=== PATIENT | female | born 1970 | race Caucasian/White ===

== ENCOUNTER 2024-11-15 13:12 | Outpatient (CLI) | payer OTHER, SELFPAY ==
--- NOTE | ~2024-11-15 | MM_ITS ---
EXAMINATION: MM screening arina BI w hafsa HISTORY: Screening TECHNIQUE: Craniocaudal and mediolateral oblique 3-D tomosynthesis images were obtained and synthetic 2-D images were generated. CAD analysis was submitted and interpreted. COMPARISON: No prior mammogram is available for comparison at this institution. BREAST PARENCHYMAL COMPOSITION: Dense: The breasts are extremely dense, which lowers the sensitivity of mammography. FINDINGS: There is no evidence of suspicious mass, calcification, or architectural distortion to sugg est malignancy in either breast. There has been no suspicious interval change. IMPRESSION: 1. No mammographic evidence of malignancy. 2. Recommend routine screening mammography in one year. BI-RADS Category 1: Negative Reviewed, dictated and finalized at location A.
--- OUTSIDE RECORDS SUMMARY | 2024-11-15 13:17 | XMS_ITS | Encounter Summary ---
Author Organization [facility] Address [address] [place] [address] Care Team Providers Care Copy Writer Name Role Phone LuisAndria Shelbie DAVID Primary Care Provider [phone] Encounter Details Date Type Department Care Team (Late st Contact Info) Description 10/19/2024 OrthoSensor Message Enc [facility] [employer] [address] [place] [address] Rebeca, [facility] Provider Patient Amendment Request Social History Tobacco Use Types Packs/Day Years Used Date Smoking Tobacco: Former Cigarettes 2014 Smokeless Tobacco: Never Alcohol Use Standard Drinks/Week Comments Yes 0 (1 standard drink = 0.6 oz pur e alcohol) I only drink occasionally PHQ-2 Answer Date Recorded Patient Health Questionnaire-2 Score 4 10/19/2024 Comments No Sex and Gender Information Value Date Recorded Sex Assigned at Female 10/04/2024 3:41 PM CDT Legal Sex Female 12:26 PM CDT Gender Identity Female 10/04/2024 3:41 PM CDT Sexual Orientation Not on file documented as of this encounter Functional Status * Over the past 2 weeks, how often have you been bothered by any of the following problems? Question Answer Date of Assessment Author Status Little interest or pleasure in doing things More than half the days 10/19/2024 4:04 PM CDT Laya Murillo MA Active Feeling down, depressed, or hopeless More than half the days 10/19/2024 4:04 PM CDT Laya Murillo MA Active Patient Health Questionnaire-2 Score 4 10/19/2024 4:04 PM CDT Laya Murillo MA Active * Question Answer Date of Assessment Author Status Trouble falling or staying asleep, or sleeping too much More than half the days 10/19/2024 4:04 PM CDT Laya Murillo MA Active Feeling tired or having little energy More than half the days 10/19/2024 4:04 PM CDT Laya Murillo MA Active Poor appetite or overeating Not at all 10/19/2024 4:04 PM CDT Laya Murillo MA Active Feeling bad about yourself - or that you are a failure or have let yourself or your family down Not at all 10/19/2024 4:04 PM CDT Laya Murillo MA Active Trouble concentrating on things, such as reading the newspaper or watching television Several days 10/19/2024 4:04 PM CDT Laya Murillo MA Active Moving or speaking so slowly that other people could have noticed? Or the opposite - being so fidgety or restless that you have been moving around a lot more than usual. Not at all 10/19/2024 4:04 PM CDT Laya Murillo MA Active Thoughts that you would be better off or hurting yourself in some way Not at all 10/19/2024 4:04 PM CDT Laya Murillo MA Active Patient Health Questionnaire-9 Score 9 10/19/2024 4:04 PM CDT Laya Murillo MA Active * If you checked off any problems on this questionnaire so far, Question Answer Date of Assessment Author Status How difficult have these problems made it for you to do your work, take care of things at home, or get along with other people? Somewhat difficult 10/19/2024 4:04 PM CDT Laya Murillo MA Active * Over the last 2 weeks, how often have you been bothered by any of the following problems? Question Answer Date of Assessment Author Status Feeling nervous, anxious, or on edge 3 10/19/2024 4:05 PM CDT Laya Murillo MA Active Not being able to stop or control worrying 3 10/19/2024 4:05 PM CDT Laya Murillo MA Activ e Worrying too much about different things 3 10/19/2024 4:05 PM CDT Laya Murillo MA Activ e Trouble relaxing 1 10/19/2024 4:05 PM CDT Laya Murillo MA Active Being so restless that it is hard to sit still 1 10/19/2024 4:05 PM CDT Laya Murillo MA Acti ve Becoming easily annoyed or irritable 1 10/19/2024 4:05 PM CDT Laya Murillo MA Active Feeling afraid as if something awful might happen 0 10/19/2024 4:05 PM CDT Alesha Murillo MA Active RULA-7 Total Score 12 10/19/2024 4:05 PM CDT Laya Murillo MA Active documented as of this encounter Plan of Treatment Upcoming Encounters Date Type Department Care Team (Late st Contact Info) Description 12/03/2024 2:20 PM CDT Office Visit [facility] [place] [address] [place] [address] Andria Smith DO [address] [place] [address] documented as of this encounter Visit Diagnoses Not on filedocumented in this encounter Additional Health Concerns Assessment Noted Time PHQ-9 Depression Total Score: 9 10/20/19 4:04 PM CDT documented as of this encounter Care Teams Copy Writer Relationship Specialty Start Date End Date Andria Smith DO [address] [place] [address] PCP - General FAMILY PRACTICE 09/27/24 documented as of this encounter
--- OUTSIDE RECORDS SUMMARY | 2024-11-15 13:17 | XMS_ITS | Clinical Summary ---
Author Organization [facility] [address] Address [address] [place] [id number] Care Team Providers Care Mill Helper Name Role Phone Unknown, Notinfile Primary Care Provider Unavail able Alex Fontanez MD Unavailable Allergies No known active allergies Medications valACYclovir (VALTREX) 500 mg tablet Take 1 tablet (500 mg total) by mouth daily 90 tablet 3 5 Active acyclovir (ZOVIRAX) 5 % ointmentIndicat ions:HSV (herpes simplex virus) infection Apply topically 4 (four) times a day 15 g 5 Active Active Problems Problem Noted Date Diagnosed Date Abnormal Pap smear of cervix 09/18/2024 H/O LEEP 09/18/2024 Vaginal pain 09/18/2024 Assessment & Plan (09/18/2024 4:23 PM CDT): -New patient evaluation for vaginal pain. -Evidence of likely HSV. Extremely tender. No cultures obtained today -GC, chlamydia, trich and BV, yeast cultures obtained. -Long discussion regarding HSV. Transmission. Prevention. Patient agrees to get serum studies including HSV. -We will prescribe Valtrex treatment and prophylaxis. We will also provide Zovirax ointment. -Patient's questions were answered. She is welcome to the practice. Encounters Date Type Department Care Team Description 09/18/2024 3:39 PM CDT - 09/18/2024 11:59 PM CDT Hospital Encounter [id number] [place] [address] Discharge Disposition: Discharge to home or self care 09/18/2024 3:00 PM CDT Office Visit [facility] Care at [address] [phone] Alex Fontanez MD Screening examination for STI (Primary Dx); Vaginal pain from Last 3 Months Surgical History Surgery Date Site/Laterality Comments VULVA SURGERY CERVICAL BIOPSY W/ LOOP ELECTRODE EXCISION Social History Tobacco Use Types Packs/Day Years Used Date Smoking Tobacco: Former Cigarettes Passive Smoke Exposure: Never Smokeless Tobacco: Never Comments No Sex and Gender Information Value Date Recorded Sex Assigned at Not on file Legal Sex Female 10:20 AM CDT Gender Identity Not on file Sexual Orientation Not on file Obstetrics History Para Term AB IAB SAB Ectopic Multiple Livin g Live Births 3 1 1 2 1 1 Date Outcome GA Total Labor Labor/2nd/3rd Weight Sex Type Anes PTL Rand A1 A5 Name Clin Term AB AB Last Filed Vital Signs Vital Sign Reading Time Taken Comments Blood Pressure 116/64 09/18/2024 3:07 PM CDT Pulse 80 09/23/2023 10:40 AM CDT Temperature 36.8 C (98.2 F) 09/23/2023 10:40 AM CDT Respiratory Rate - - Oxygen Saturation 98% 09/23/2023 10:40 AM CDT Inhaled Oxygen Concentration - - Weight 52.6 kg (116 lb) 09/18/2024 3:07 PM CDT Height 157 cm (5' 1.81 ) 09/18/2024 3:07 PM CDT Body Mass Index 21.35 09/18/2024 3:07 PM CDT Plan of Treatment Health Maintenance Due Date Last Done Comments Breast Cancer Screening-Mammogram 1972 Cervical Cancer Screening 1972 Colon Cancer Screening-Colonoscopy 1972 Depression Screening 1972 Hepatitis B Screening 01/19/1990 Regular Well Visit/Exam 18-64 01/19/1990 Zoster Vaccine (1 of 2) 01/19/2022 Covid-19 Vaccine (2023-2 5 season) 2024 11/12/2021, 10/23/2020, 10/02/2020 Influenza Vaccine (Season Ended) 2025 DTaP/Tdap/Td Vaccine (2 - Td or Tdap) 12/01/2028 12/01/2018 Hepatitis C Screening Completed 09/18/2024 Pneumococcal vaccine <65 Aged Out No longer eligible based on patient's age to complete this topic Procedures Procedure Name Priority Date/Time Associated Diagnosis Comments VAGINITIS PANEL Routine 09/18/2024 3:39 PM CDT Screening examination for STI N. GONORRHOEAE/C. TRACHOMATIS AMPLIFICATION Routine 09/18/2024 3:39 PM CDT Screening examination for STI HSV 1 ANTIBODY, IGG Routine 09/18/2024 3 :37 PM CDT Screening examination for STI HSV 2 ANTIBODY, IGG Routine 09/18/2024 3 :37 PM CDT Screening examination for STI HEPATITIS C ANTIBODY Routine 09/18/2024 3:37 PM CDT Screening examination for STI HEPATITIS B SURFACE ANTIGEN Routine 09/18/2024 3:37 PM CDT Screening examination for STI RPR Routine 09/18/2024 3:37 PM CDT Screening examination for STI HIV 1/2 ANTIBODY PLUS P24 ANTIGEN Routine 09/18/2024 3:37 PM CDT Screening examination for STI from Last 3 Months Results * N. gonorrhoeae/C. trachomatis Amplification Endocervical (09/18/2024 3:39 PM CDT) C. trachomatis Not Detected N. gonorrhoeae Not Detected [facility] Comment: Interpretive Data This assay detects Chlamydia trachomatis and Neisseria gonorrhoeae by nucleic acid amplification testing (NAAT). This assay has been cleared by the [place] Food and Drug administration. The performance characteristics of this test have been verified by the [facility] laboratory. The performance characteristics of this test have not been evaluated in individuals less than 14 years of age. Current Interpretive Data was last revised on 2023. Endocervical (None) 09/19/19 3:39 PM CDT 09/18/2024 7:51 PM CDT Alex Fontanez MD LAB MICROBIOLOGY - GENERAL O RDERABLES Final Result Performing Organization Address City/[facility] Co de Phone Number [facility] [address] [place] [address] * (ABNORMAL) Vaginitis panel Vaginal (09/18/2024 3:39 PM CDT) [facility] Ashley DNA probe Not Detected Not Detected Gardnerella DNA probe Detected(A) Not Detected [facility] Trichomonas DNA probe Not Detected Not Detected [facility] Comment: Interpretive Data Testing performed by [facility] via Affirm VPIII Microbial Identification Test, a DNA probe test for use in the detection and identification of Ashley species, Gardnerella vaginalis and Trichomonas vaginalis nucleic acid in vaginal fluid specimens from patients with symptoms of vaginitis/vaginosis. Negative results for these tests suggest the patient does not have candidiasis, bacterial vaginosis and/or trichomoniasis when consistent with clinical signs and symptoms. Current interpretive data was last revised on 2020. Vaginal 09/18/2024 3:39 PM CDT 09/18/2024 7:30 PM CDT Alex Fontanez MD LAB MICROBIOLOGY - GENERAL O RDERABLES Final Result Performing Organization Address City/[facility]/ZIP Co de Phone Number [facility] [address] [place] [address] * HIV 1/2 Antibody plus p24 Antigen Blood (09/18/2024 3:37 PM CDT) [facility] HIV 1/2 ab + p24 ag Nonreactive Nonreactive Comment: Nonreactive for HIV-1 antigen and HIV-1/HIV-2 antibodies. No laboratory evidence of HIV infection. If acute HIV infection is suspected, consider testing for HIV-1 RNA. Blood 09/18/2024 3:37 PM CDT 09/18/2024 7:41 PM CDT us Alex Fontanez MD LAB MICROBIOLOGY - GENERAL O RDERABLES Final Result Performing Organization Address [facility] Co de Phone Number [facility] [address] Department [place] [address] * Hepatitis C antibody Blood (09/18/2024 3:37 PM CDT) Pathologist [facility] Hep C Ab Nonreactive Nonreactive Comment: Interpretive Data Nonreactive: Antibodies to HCV not detected. Does NOT exclude the possibility of recent exposure to HCV. Equivocal: Equivocal for HCV antibodies. Supplemental molecular testing will be automatically performed to determine infection status in accordance with current CDC screening recommendations. Reactive: Positive for HCV antibodies. This may represent current or past HCV infection. Supplemental molecular testing will be automatically performed to determine current infection status in accordance with current CDC screening recommendations. Interpretive data was last revised on 2019. Blood 09/18/2024 3:37 PM CDT 09/18/2024 7:38 PM CDT us Alex Fontanez MD LAB MICROBIOLOGY - GENERAL O RDERABLES Final Result Performing Organization Address [facility] Co de Phone Number [facility] [address] Department [place] [address] * (ABNORMAL) HSV 2 IgG Antibody Blood (09/18/2024 3:37 PM CDT) Pathologist [facility] HSV 2 IgG Reactive( A) Nonreactive Comment: Interpretive Data 1. Nonreactive: No detectable IgG antibody to HSV-2. 2. Equivocal: Presence or absence of detectable antibodies to HSV-2 cannot be determined and the test should be repeated. 3. Reactive: Indicates presence of detectable IgG antibody to HSV-2. Current interpretive data was last revised on 2022. Testing performed by: [facility], [address], [place]., [address] Blood 09/18/2024 3:37 PM CDT 09/18/2024 10:00 PM CDT Alex Fontanez MD LAB MICROBIOLOGY - GENERAL O RDERABLES Final Result [facility] [address] Department [place] [address] * HSV 1 IgG Antibody Blood (09/18/2024 3:37 PM CDT) Pathologist [facility] HSV 1 IgG Nonreactive Nonreactive Comment: Interpretive Data 1. Nonreactive: No detectable IgG antibody to HSV-1. 2. Equivocal: Presence or absence of detectable antibodies to HSV-1 cannot be determined and the test should be repeated. 3. Reactive: Indicates presence of detectable IgG antibody to HSV-1. Current interpretive data was last revised on 2016. Testing performed by: [facility], [address] [place] [address]., [address] Blood 09/18/2024 3:37 PM CDT 09/18/2024 10:00 PM CDT Alex Fontanez MD LAB MICROBIOLOGY - GENERAL O RDERABLES Final Result Performing Organization Address [facility] Co de Phone Number [facility] [address] [place] [address] * RPR Blood (09/18/2024 3:37 PM CDT) Pathologist [facility] RPR Nonreactive Nonreactive Comment:Testing performed by : [facility], [address] [place] [address], [place]., [address] Blood 09/18/2024 3:37 PM CDT 09/18/2024 10:04 PM CDT Alex Fontanez MD LAB MICROBIOLOGY - GENERAL O RDERABLES Final Result [facility] [address] Department [place] [address] * Hepatitis B Surface Antigen Blood (09/18/2024 3:37 PM CDT) HepBsAg Nonreactive Nonreactive Blood 09/18/2024 3:37 PM CDT 09/18/2024 7:38 PM CDT us Alex Fontanez MD LAB MICROBIOLOGY - GENERAL O RDERABLES Final Result [facility] [address] Department [place] [address] from Last 3 Months Insurance [facility] H[facility]/PPO Address: [address] [phone] Care Teams Mill Helper Relationship Specialty Start Date End Date Unknown, Notinfile PCP - General 09/23/23 Alex Fontanez MD [address] [place] [address] Wet Machine Operator Obstetrics and Gynecology 09/18/24
--- OUTSIDE RECORDS SUMMARY | 2024-11-15 13:18 | XMS_ITS | Clinical Summary ---
Author Organization [facility] Address [facility] [place] [address] Care Team Providers Care Solar Process Engineer Name Role Phone LuisAndria Primary Care Provider [phone] Allergies No known active allergies Medications acyclovir (ZOVIRAX) 5 % ointment Apply topically 4 (four) times daily. 5 Active polyethylene glycol (GAVILAX) 17 GM/SCOOP powder Take 17 g by mouth 2 (two) times daily. Dissolve powder in 240 mL water Active Vitamin D3 (VITAMIN D) 50 mcg tablet Take 1 tablet (50 mcg total) by mouth daily. Active FLUoxetine (PROZAC) 10 MG tabletIndication s:Generalized anxiety disorder Take 1 tablet (10 mg total) by mouth daily. 90 tablet 5 025 Active gabapentin (NEURONTIN) 100 MG capsuleIndicatio ns:PHN (postherpetic neuralgia) Take 1 capsule (100 mg total) by mouth nightly as needed (Nerve pain). Take 1 capsule nightly as needed for nerve pain 30 capsule 5 025 Active valACYclovir (VALTREX) 500 MG tablet Take 1 tablet (500 mg total) by mouth daily. 5 025 Discontinu ed(Reorder ) valACYclovir (VALTREX) 500 MG tabletIndication s:HSV-2 seropositive Take 2 tablets (1,000 mg total) by mouth daily for 14 days. 28 tablet 5 025 gabapentin (NEURONTIN) 100 MG capsuleIndicatio ns:PHN (postherpetic neuralgia) Take 1 capsule (100 mg total) by mouth nightly for 30 days. Take 1-3 capsules nightly as needed for nerve pain 30 capsule 5 025 Discontinu ed(Reorder ) Active Problems Problem Noted Date Diagnosed Date Screening for lung cancer 10/29/2024 Overview (10/29/2024): 10/29/2024: She denies previously participating in lung cancer screening. Assessment & Plan (10/29/2024 1:39 PM CDT): Discussed with patient that she qualifies for lung cancer screening with low- dose CT scanning based on amount of time she smoked cigarettes as she smoked cigarettes approximately 1 pack/day for 24 years and quit early 2014. Low-dose CT scan ordered to [place] per patient preference. Nicotine dependence, cigarettes, in remission Overview (10/29/2024): 10/29/2024: She smoked cigarettes approximately 1 pack/day for 24 years and quit early 2014. Assessment & Plan (10/29/2024 1:43 PM CDT): Lung cancer screening with low-dose CT scan ordered Decreased calculated glomerular filtration rate (GFR) 10/19/2024 Overview (10/19/2024): Component Ref Range & Units 10/11/24 0943 SODIUM S/P/B 136 - 145 MMOL/L 142 POTASSIUM S/P/B 3.5 - 5.1 MMOL/L 4.2 CHLORIDE S/P/B 98 - 107 MMOL/L 104 CO2 21 - 32 MMOL/L 32.0 GLUCOSE 70 - 99 MG/DL 85 BUN 7 - 18 MG/DL 12 CREATININE S/P/B 0.55 - 1.02 MG/DL 0.89 CALCIUM S/P/B 8.4 - 10.5 MG/DL 10.0 BILIRUBIN TOTAL S/P/B 0.2 - 1.0 MG/DL 0.4 ALKALINE PHOSPHATASE S/P/B 41 - 108 U/L 77 AST 15 - 37 U/L 17 ALT 14 - 59 U/L 20 TOTAL PROTEIN S/P/B 6.4 - 8.2 G/DL 7.5 ALBUMIN S/P/B 3.4 - 5.0 G/DL 4.2 ANION GAP 5 - 15 MMOL/L 6.0 Comment: REFERENCE RANGE NOT ESTABLISHED OSMOLALITY (CALC) MOSM/KG 293 Comment: REFERENCE RANGE NOT ESTABLISHED GFR ESTIMATE >90 ML/MIN/1.73 M2 78 Low Assessment & Plan (10/19/2024 7:23 AM CDT): Would like to repeat in January 2025 to confirm Vitamin D insufficiency 10/19/2024 Overview (10/29/2024): Component Ref Range & Units 10/11/24 0943 VITAMIN D 25 HYDROXY TOTAL S/P/B 30 - 100 NG/ML 27.2 Low Comment: DEFICIENT <20 INSUFFICIENT 20-30 SUFFICIENT 30-100 10/29/2024: She reports she is taking vitamin D 1000 IU in her multivitamin as well as an additional 1000 IU daily. Assessment & Plan (10/29/2024 1:45 PM CDT): Continue vitamin D3 2000 IU daily. Elevated low density lipoprotein (LDL) cholester ol level 10/19/2024 Overview (10/29/2024): Component Ref Range & Units 10/11/24 0943 CHOLESTEROL <200 MG/DL 185 TRIGLYCERIDES <150 MG/DL 64 HDL >40 MG/DL 67 LDL-C <100 MG/DL 105 High VLDL CALCULATION 5 - 28 MG/DL 13 CHOL/HDL RATIO 0.0 - 4.0 2.8 LDL/HDL 0.41 - 2.13 1.6 NON HDL CHOLESTEROL <140 MG/DL 118 CT coronary artery calcium score 10/26/2024 Results: Left main: 0 LAD: 0 Circumflex: 0 Right coronary: 0 Total Score: 0 Assessment & Plan (10/29/2024 1:41 PM CDT): Agatston score 0. Will continue with lipid management with lifestyle modifications. 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 10/29/2024: She reports she received her first dose of Hepatitis B vaccine series at her [facility] pharmacy 10/23/2024 Assessment & Plan (10/29/2024 1:38 PM CDT): Requesting records from [facility]. Generalized anxiety disorder 10/19/2024 Overview (10/29/2024): 10/19/2024: She reports she has been treated for anxiety in the past and was previously on Prozac in 2007. She reports she currently has been feeling like she is existing through life . She denies thoughts of self-harm or harming others. She is interested in getting started on medication again. RULA-7 (Generalized Anxiety Disorder) Screening 10/19/2024 4:05 PM RULA-7 Feeling nervous, anxious, or on edge 3 Not being able to stop or control worrying 3 Worrying too much about different things 3 Trouble relaxing 1 Being so restless that it is hard to sit still 1 Becoming easily annoyed or irritable 1 Feeling afraid as if something awful might happen 0 RULA-7 Total Score 12 How difficult have these problems made it for you to do your work, take care of things at home, or get along with other people? Somewhat difficult 10/29/2024: She reports she feels better mentally and physically. Assessment & Plan (10/29/2024 1:32 PM CDT): Continue Paxil 10 mg daily. Assessment & Plan (10/19/2024 8:52 PM CDT): I am agreeable to initiating medication therapy for this patient. We agreed will restart Prozac at 10 mg daily. She is understanding of potential side effects of medication. Will continue to monitor. PHN (postherpetic neuralgia) 10/19/2024 Overview (10/29/2024): 10/19/2024: She reports she is having difficulty falling asleep at nighttime due to pain and discomfort around her genitals. She describes tingling and itching and irritation that she experiencing in nighttime however during the day as well. 10/29/2024: She reports she took gabapentin 100 mg for the first time last night and medication helped with the burning sensation. Assessment & Plan (10/29/2024 1:37 PM CDT): Continue gabapentin nightly as needed. Assessment & Plan (10/19/2024 8:58 PM CDT): Suspect some of her pain is related to postherpetic neuralgia and we will treat her with gabapentin 100 mg nightly. She can increase up to 300 mg nightly if necessary. Colon cancer screening 10/04/2024 Overview (10/29/2024): Initial visit 10/04/2024: Has not previously participated in colon cancer screening. 10/29/2024: She reports she was told that Dr. Erasto Jaramillo military logistics specialist in [place] is covered through her insurance. She is requesting referral. Assessment & Plan (10/29/2024 1:40 PM CDT): Referral placed to Dr. Xavier Jaramillo military logistics specialist in [place] per patient request. Cervical cancer screening 10/04/2024 Overview (10/04/2024): Initial visit 10/04/2024: She reports an abnormal Pap in her 20s and had a LEEP. She reports last Pap over 10 years ago. Assessment & Plan (10/04/2024 6:10 PM CDT): Patient due for Pap. Our office is happy to complete this for her. Will plan well woman exam. Encounter for screening mamm ogram for malignant neoplasm of breast 10/04/2024 Overview (10/04/2024): Initial visit 10/04/2024: She reports she is due for mammogram. Assessment & Plan (10/29/2024 1:42 PM CDT): Mammogram ordered to [place] [facility] per patient request. Assessment & Plan (10/04/2024 6:11 PM CDT): Mammogram is due. Patient unsure where she would like to go for mammogram. Will order at another visit. Bacterial vaginitis 10/04/2024 Overview (10/04/2024): Initial visit 10/04/2024: She recently tested positive for Gardnerella 09/18/2024. She reports she was treated with metronidazole. She reports she had some itching recently since finishing treatment and her provider prescribed her Diflucan which she took yesterday. Assessment & Plan (10/04/2024 6:12 PM CDT): Discussed with patient that her sexual partner should be treated to prevent recurrence. Postmenopausal 10/04/2024 Overview (10/04/2024): Initial visit 10/04/2024: She reports she is postmenopausal and went through menopause within the last few years. 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 She reports she obtain this from her current sexual partner of 8 months. She was treated by [facility] PRO[facility] for genital lesions and is currently on valacyclovir 500 mg daily. 10/19/2024: She reports she had had improvement in her symptoms however symptoms started to recur including pain and irritation. She called [facility] office and they prescribed her acyclovir ointment which she has been using topically which she reports has helped her symptoms. She is continuing to take valacyclovir 500 mg daily. 10/29/2024: She reports she is feeling better mentally and physical since being on valacyclovir 1000 mg daily. Assessment & Plan (10/29/2024 1:37 PM CDT): Plan to continue valacyclovir 1000 mg daily through Tuesday and then decrease to 500 mg daily. If symptoms return, will increase back to 1000 mg daily until further notice. Assessment & Plan (10/19/2024 8:57 PM CDT): Discussed with patient as her symptoms recurred, I would like to increase her at this time to valacyclovir 1000 mg daily. I suspect some of her pain is related to postherpetic neuralgia and we will treat her accordingly. See under postherpetic neuralgia. Other tobacco product nicotine dependence, uncom plicated 10/04/2024 Overview (10/04/2024): Initial visit 10/04/2024: She reports she smoked approximately 1 pack/day or less from age [age]. She is currently vaping nicotine product daily. Assessment & Plan (10/04/2024 6:09 PM CDT): Discussed with patient that her smoking history qualifies her for lung cancer screening with low-dose CT scan annually. Will order at another visit. Family history of coronary artery disease 2024 Overview (10/29/2024): Initial visit 10/04/2024: In father, stent placed and heart valve placed 82 CT coronary artery calcium score 10/26/2024 Results: Left main: 0 LAD: 0 Circumflex: 0 Right coronary: 0 Total Score: 0 Assessment & Plan (10/29/2024 1:41 PM CDT): Agatston score 0. Will continue with lipid management with lifestyle modifications. Assessment & Plan (10/04/2024 6:26 PM CDT): Recommend in the setting of patient's family history that she has CT coronary artery calcium score completed. She is counseled that this is an [id number] cost. She is recommended not to smoke or vape 12 hours prior to scan. History of abnormal cervical Pap smear Overview (10/29/2024): 10/29/2024: She reports she had abnormal Pap in her 20s and had subsequent LEEP. She reports Paps after were all normal. H/O LEEP 09/18/2024 Overview (10/04/2024): Initial visit 10/04/2024: She reports an abnormal Pap in her 20s and had a LEEP. Vaginal pain 09/18/2024 Resolved Problems Problem Noted Date Diagnosed Date Resolved Date Need for prophylactic vaccin ation against hepatitis B virus 10/19/2024 10/22/2024 Constipation, unspecified constipation type 10/04/2024 10/29/2024 Overview (10/29/2024): Initial visit 10/04/2024: She reports she is generally healthy however has developed constipation issues for almost a month . She reports she has never had a colonoscopy. She reports she has been experiencing some constipation concerns since menopause however has been taking an Om mushroom protein powder regularly which has helped with bloating. She reports she has not had any issues for a year or so up until the beginning of September of this year. She reports she generally has narrowed down to eating too much cheese which has bound me up before so she cut down intake. She reports she has recently been diagnosed with HSV-2 and had genital lesions and constipation symptoms started around this time beginning of September around 09/02/2024. She reports she has not been able to exercise for a few weeks and she routinely exercises regularly. She reports the longest she has gone in between bowel movements has been 2 days since she normally has daily bowel movements. She reports at first she was straining however she started taking a nonstimulant laxative of unknown name which helped promote more regular bowel movements. She also was treated with metronidazole for bacterial vaginosis and took Diflucan for vaginal yeast infection. She reports when she was younger she went through divorce and was diagnosed with irritable bowel syndrome. 10/19/2024: She reports her constipation has improved and there is only been a day or two in which she has not had a bowel movement. She reports her bowel movements are soft however not liquid. She denies any straining. She reports insurance covered Gavilax. 10/29/2024: She reports her constipation issues have essentially resolved. She reports she is taking fiber supplementation regularly. Assessment & Plan (10/19/2024 8:48 PM CDT): Will continue to promote bowel movements with current plan. Assessment & Plan (10/04/2024 6:23 PM CDT): Discussed with patient that there are many factors that could be involved in change in her bowel movements recently such as antibiotic use, stress, decreased exercise. However, patient is also due for colon cancer screening and I recommend colonoscopy which she is agreeable to. Referral has been placed. Discussed with patient that I recommend for her current constipation we treat with MiraLAX 17 g twice daily until bowel movements become more regular and then decrease to 17 g once daily. Recommend drinking 1.5 L water daily and increasing physical activity. Recommend psyllium husk 1 teaspoon 1-3 times daily. Abnormal Pap smear of cervix 09/18/2024 10/04/2024 Encounters Date Type Department Care Team Description 10/29/2024 12:40 PM CDT [facility] [place] [address] [place] [address] Andria Smith, DO Medication Management (No questions or concerns today. /) 10/29/2024 Travel 10/29/2024 Results Follow-Up [facility] [place] [address] [place] [address] Andria Smith, DO CT HEART SCREEN CALCIUM SCORE PROMO 10/26/2024 9:13 AM CDT - 10/26/2024 11:59 PM CDT Hospital Encounter [facility] [address] [place] [address] Andria Smith, DO Discharge Disposition: Home or Self Care (Routine Discharge) 10/26/2024 Travel 10/23/2024 Telephone [facility] [place] [address] [place] [address] Andria Smith, Medication Information 10/19/2024 2:40 PM CDT [facility] [place] [address] [place] [address] Andria Smith, Constipation (Pt states bowel movements have been better. /Medication is helping per pt. /) 10/19/[address] [facility] [address] [place] [address] [facility] Provider Patient Amendment Request 10/19/2024 Travel 10/11/2024 9:40 AM CDT Laboratory Only [place] [address] [place] [address] Andria Smith DO 10/11/2024 - 10/11/2024 11:59 PM CDT Hospital Encounter [facility] [address] [place] [address] Andria Smith, Discharge Disposition: Home or Self Care (Routine Discharge) 10/11/2024 Travel 10/04/2024 3:40 PM CDT Office Visit [place] [address] [address] [place] [address] Andria Smith DO New Patient (Pt states she has had constipation for a few weeks now. /Pt states she has not had a Dr in a few years. ); Constipation 10/04/2024 Travel from Last 3 Months Immunizations Immunization Administration Dates Next Due Hepatitis B Vac Recomb Adj 20 Mcg/0.5ml Im Sosy 10/23/2024 Influenza (Generic) 04/12/2024 Shingrix 07/20/2024,04/12/2024 Tdap (Generic) 12/01/2018 Family History Medical History Relation Comments No Known Problems Brother Depression Daughter Depression and a nxiey since adolescence, but is now successfully managed since 2020, since being prescribed Sertraline. Mental Health Daughter Cancer Father Had small spot o f cancer in bladder twice, removed with no chemo or radiation needed. Valvular heart disease Father s/p repla cement No Known Problems Half-sister Cancer Maternal Grandfather Depression Maternal Grandmother Suffered wi th clinical depression most of her life. Mental Health Maternal Grandmother Vision loss Maternal Grandmother Blindness i n senior years due to glaucoma Arthritis Mother Diabetes Mother Managed via diet amd exercise. No medications needed. Hypertension Mother Miscarriages / Stillbirths Mother At le ast 2 miscarriages that I am aware of Stroke Mother Mild stroke with complete recovery in early 60s Coronary artery disease Paternal Grandfather CHF Paternal Grandmother Heart Disease Paternal Grandmother Congestive heart failure late in life (80s) Vision loss Paternal Grandmother Near blindn ess in senior years due to macular degeneration. No Known Problems Sister 1 No Known Problems Sister 2 Relation Status Comments Brother Alive Daughter Alive Father Alive Half-sister Alive Maternal Grandfather Maternal Grandmother Mother Alive Paternal Grandfather Paternal Grandmother Sister 1 Alive Sister 2 Alive Social History Tobacco Use Types Packs/Day Years Used Date Smoking Tobacco: Former Cigarettes 2014 Smokeless Tobacco: Never Tobacco Cessation:Counseling Given: No Alcohol Use Standard Drinks/Week Comments Yes 0 [...] PM CDT Sexual Orientation Not on file Last Filed Vital Signs Vital Sign Reading Time Taken Comments Blood Pressure 139/85 10/29/2024 12:46 PM CDT Pulse 51 10/29/2024 12:46 PM CDT Temperature 36.7 C (98 F) 10/29/2024 12:46 PM CDT Respiratory Rate 16 10/29/2024 12:46 PM CDT Oxygen Saturation 99% 10/29/2024 12:46 PM CDT Inhaled Oxygen Concentration - - Weight 51.3 kg (113 lb) 10/29/2024 12:46 PM CDT Height 157.5 cm (5' 2 ) 10/29/2024 12:46 PM CDT Body Mass Index 20.67 10/29/2024 12:46 PM CDT Plan of Treatment Upcoming Encounters Date Type Department Care Team (Late st Contact Info) Description 12/03/2024 2:20 PM CDT Office Visit [facility] [place] [address] [place] [address] Andria Smith, [address] [place] [address] Health Maintenance Due Date Last Done Comments Cervical Cancer Screening Pap Smear (Age 30 to 64) Every 3 Years 1972 Colorectal Cancer Screening Colonoscopy (10 Years) 1972 Annual Physical 01/19/1975 Cervical Cancer Screening Pap with HPV Testing (Age 30 to 64) Every 5 Years 01/19/2002 Cervical Cancer Screening with HPV 01/19/2002 Mammogram Screening 2012 Pneumococcal Vaccine: 50+ Years (1 of 1 - PCV) 01/19/2022 Hepatitis B Vaccines (2 of 2 - CpG 2-dose series) 11/20/2024 10/23/2024 DTaP, Tdap and Td Vaccines (2 - Td or Tdap) 12/01/2028 12/01/2018 COVID-19 Vaccine Completed 04/12/2024, 06/2022, 10/23/2020, Additional history exists Zoster Vaccines Completed 07/20/2024, 04/12/2024 Hepatitis C Completed 09/18/2024 PHQ-2 (Physician Ulysses) Completed 10/19/2024 Meningococcal B Vaccine Aged Out No l onger eligible based on patient's age to complete this topic Meningococcal Vaccine Aged Out No joe lisa eligible based on patient's age to complete this topic RSV Immunizations Under 20 Months Aged Out No longer eligible based on patient's age to complete this topic Procedures Procedure Name Priority Date/Time Associated Diagnosis Comments CT HEART SCREEN CALCIUM SCORE PROMO Routine 10/26/2024 9:39 AM CDT Other tobacco product nicotine dependence, uncomplicated Family history of coronary artery disease COLLECTION VENOUS BLOOD VENIPUNCTURE Routine 10/11/2024 9:43 AM CDT Vitamin D deficiency TSH W/REFLEX Routine 10/11/2024 9:43 AM CDT Annual physical exam COMPREHENSIVE METABOLIC PANEL Routine 10/11/2024 9:43 AM CDT Annual physical exam CBC W/DIFF AUTOMATED Routine 10/11/2024 9:43 AM CDT Annual physical exam LIPID PANEL Routine 10/11/2024 9:43 AM CDT Annual physical exam VITAMIN D, 25 OH Routine 10/11/2024 9:43 AM CDT Vitamin D deficiency HEPATITIS B SURFACE ANTIBODY Routine 10/11/2024 9:43 AM CDT Immunity status testing from Last 3 Months Results * CT HEART SCREEN CALCIUM SCORE PROMO (10/26/2024 9:39 AM CDT) Anatomical Region Laterality Modality Chest Computed Tomogra phy 10/29/2024 7:04 AM CDT Impressions 10/29/2024 7:05 AM CDT =====IMPRESSION:===== Total Score: 0 No plaque, very low risk, very unlikely for probability of significant CAD Ordered By: ANDRIA SMITH Interpreted By: Kwame Pruitt MD, 10/29/2024 7:04 AM Narrative 10/29/2024 7:05 AM CDT [address] [address] EXAMINATION: Multislice Helical CT Coronary Calcium Scoring REASON FOR EXAM: Screening for heart disease COMPARISON: None TECHNIQUE: Multislice helical CT images of the proximal coronary arteries with a computer generated calcification score. A dose lowering technique was used for this procedure, which may include, but is not limited to, dose reduction technique, automated exposure control, iterative reconstruction, ALARA (As Low As Reasonably Achievable), or Image Gently techniques. Results: Left main: 0 LAD: 0 Circumflex: 0 Right coronary: 0 Total Score: 0 Comments: There is no mediastinal adenopathy, and there are no pulmonary nodules in the visualized portions of the chest. Calcium score guidelines: Total Score* Calcium Plaque Torreon *Risk *Probability of significant CAD 0 No Plaque Very Low Very unlikely 1-10 Minimal Plaque Low Unlikely 11-100 Mild Plaque Moderate Low likelihood of significant stenosis <50% 101-400 Moderate Plaque Moderately High Moderate likelihood of significant stenosis (>50%) Over 400 Extensive Plaque High High likelihood of significant stenosis (>50%) The amount of coronary artery calcification correlates with the severity of coronary atherosclerosis and the probability of future significant event. Calcification is not site specific for stenosis and does not identify non-calcified atherosclerotic plaque, but rather indicates the extent of atherosclerosis in the coronary arteries overall. The score may be used as an indicator for risk factor modification or additional cardiac testing. Significant change in calcium score over time may be indicative of subsequent disease development or useful as a benchmark to assess preventative programs. Procedure Note Kwame Pruitt MD - 10/29/2024 [place] [address] EXAMINATION: Multislice Helical CT Coronary Calcium Scoring REASON FOR EXAM: Screening for heart disease COMPARISON: None TECHNIQUE: Multislice helical CT images of the proximal coronary arterieswith a computer generated calcification score. A dose lowering techniquewas used for this procedure, which may include, but is not limited to,dose reduction technique, automated exposure control, iterativereconstruction, ALARA (As Low As Reasonably Achievable), or Image Gentlytechniques. Results: Left main: 0 LAD: 0 Circumflex: 0 Right coronary: 0 Total Score: 0 Comments: There is no mediastinal adenopathy, and there are no pulmonarynodules in the visualized portions of the chest. Calcium score guidelines: Total Score* Calcium Plaque Torreon *Risk *Probability ofsignificant CAD 0 No Plaque Very LowVery unlikely 1-10 Minimal Plaque LowUnlikely 11-100 Mild Plaque ModerateLow likelihood of significant stenosis <50% 101-400 Moderate Plaque Moderately HighModerate likelihood of significant stenosis (>50%) Over 400 Extensive Plaque HighHigh likelihood of significant stenosis (>50%) The amount of coronary artery calcification correlates with the severityof coronary atherosclerosis and the probability of future significantevent. Calcification is not site specific for stenosis and does notidentify non-calcified atherosclerotic plaque, but rather indicates theextent of atherosclerosis in the coronary arteries overall. The score may be used as an indicator for risk factor modification oradditional cardiac testing. Significant change in calcium score over timemay be indicative of subsequent disease development or useful as abenchmark to assess preventative programs. =====IMPRESSION:===== Total Score: 0 No plaque, very low risk, very unlikely for probability ofsignificant CAD Ordered By: ANDRIA SMITH Interpreted By: Kwame Pruitt MD, 10/29/2024 7:04 AM Andria Smith DO CT Final Result * TSH W/REFLEX (10/11/2024 9:43 AM CDT) TSH 1.093 0.358 - 3.740 uIU/ML 10/11/2024 3:39 PM CDT [facility] 10/11/2024 9:43 AM CDT Andria Smith DO LABORATORY Final Result [facility] [address] [place] [address], * (ABNORMAL) COMPREHENSIVE METABOLIC PANEL (10/11/2024 9:43 AM CDT) SODIUM S/P/B 142 136 - 145 MMOL/L 10/11/2024 3:39 PM CDT [facility] [place] POTASSIUM S/P/B 4.2 3.5 - 5.1 MMOL/L 10/11/2024 3:39 PM CDT [facility] CHLORIDE S/P/B 104 98 - 107 MMOL/L 10/11/2024 3:39 PM CDT [facility] CO2 32.0 21 - 32 MMOL/L 10/11/2024 3:39 PM CDT [facility] GLUCOSE 85 70 - 99 MG/DL 10/11/2024 3:39 PM CDT [facility] BUN 12 7 - 18 MG/DL 10/11/2024 3:39 PM T [facility] CREATININE S/P/B 0.89 0.55 - 1.02 MG/DL 10/11/2024 3:39 PM T [facility] CALCIUM S/P/B 10.0 8.4 - 10.5 MG/DL 10/11/2024 3:39 PM T [facility] BILIRUBIN TOTAL S/P/B 0.4 0.2 - 1.0 MG/DL 10/11/2024 3:39 PM T [facility] ALKALINE PHOSPHATASE S/P/B 77 41 - 108 U/L 10/11/2024 3:39 PM T [facility] AST 17 15 - 37 U/L 10/11/2024 3:39 PM T [facility] ALT 20 14 - 59 U/L 10/11/2024 3:39 PM T [facility] TOTAL PROTEIN S/P/B 7.5 6.4 - 8.2 G/DL 10/11/2024 3:39 PM T [facility] ALBUMIN S/P/B 4.2 3.4 - 5.0 G/DL 10/11/2024 3:39 PM T [facility] ANION GAP 6.0 5 - 15 MMOL/L 10/11/2024 3:39 PM T [facility] Comment:REFERENCE RANGE NOT ESTABLISHED OSMOLALITY (CALC) 293 MOSM/KG 025 3:39 PM CDT [facility] Comment:REFERENCE RANGE NOT ESTABLISHED GFR ESTIMATE 78(L) >90 ML/MIN/1. 73 M2 10/11/2024 3:39 PM CDT [facility] GFR NOTES GFR REFERENCE S: 10/11/2024 3:39 PM T [facility] Comment: THE ESTIMATED GFR IS CALCULATED USING THE 2020 CKD-EPI EQUATION. THE FOLLOWING CATEGORIES FOR GRADING RENAL FUNCTION ARE RECOMMENDED BY THE INTERNATIONAL SOCIETY OF NEPHROLOGY (KDIGO 2012 CLINICAL PRACTICE GUIDELINE). G1,NORMAL OR HIGH: >89 ml/min/1.73 m2 G2,MILDLY DECREASED: 60-89 ml/min/1.73 m2 G3A,MILDLY TO MODERATELY DECREASED: 45-59 ml/min/1.73 m2 G3B,MODERATELY TO SEVERELY DECREASED: 30-44 ml/min/1.73 m2 G4,SEVERELY DECREASED: 15-29 ml/min/1.73 m2 G5,KIDNEY FAILURE: <15 ml/min/1.73 m2 10/11/2024 9:43 AM CDT Andria Smith DO LABORATORY Final Result [facility] [address] [place] [address], * (ABNORMAL) LIPID PANEL (10/11/2024 9:43 AM CDT) CHOLESTEROL 185 <200 MG/DL 10/11/2024 3:39 PM CDT [facility] TRIGLYCERIDES 64 <150 MG/DL 10/11/2024 3:39 PM CDT [facility] HDL 67 >40 MG/DL 10/11/2024 3:39 PM CDT [facility] LDL-C 105(H) <100 MG/DL 10/11/2024 3:39 PM CDT [facility] VLDL CALCULATION 13 5 - 28 MG/DL 10/11/2024 3:39 PM CDT [facility] CHOL/HDL RATIO 2.8 0.0 - 4.0 10/11/2024 3:39 PM CDT [facility] LDL/HDL 1.6 0.41 - 2.13 10/11/2024 3:39 PM CDT [facility] [place] NON HDL CHOLESTEROL 118 <140 MG/DL 10/11/2024 3:39 PM CDT [facility] 10/11/2024 9:43 AM CDT Andria Smith DO LABORATORY [facility] [place] [address] [place] [address], * (ABNORMAL) HEPATITIS B SURFACE ANTIBODY (10/11/2024 9:43 AM CDT) HEP B SURFACE AB <3.1(L) >9.9 MIU/ML 10/11/2024 5:47 PM CDT [facility] Comment:INDIVIDUAL IS CONSID ERED NOT IMMUNE TO HBV INFECTION. Specimen (Source) Anatomical Location / Laterality [id number]|2024-11-15 13:18:00|2024-11-15 13:17:00|XMS_ITS|BKG DAEMON|External Medical Summaries|[id number]|" Referral Summary Created on: November 15, 2024 Alli Carlton : 1970 Sex: Female Author Organization [facility] [address] [place] [address] [place] [id number] Care Team Providers Care Solar Process Engineer Name Role Phone Unknown, Notinfile Primary Care Provider Unavail Alex Murillo MD Unavailable Encounters Date Type Department Care Team Description 09/18/2024 3:39 PM CDT - 09/18/2024 11:59 PM CDT Hospital Encounter [facility] [address] [place] [address] Discharge Disposition: Discharge to home or self care 09/18/2024 3:00 PM CDT Office Visit [facility] Care at [address] [phone] Alex Fontanez MD Screening examination for STI (Primary Dx); Vaginal pain from Last 3 Months Allergies No known active allergies Medications valACYclovir [...] answered. She is welcome to the practice. Social History Tobacco Use Types Packs/Day Years Used Date Smoking Tobacco: Former Cigarettes Passive Smoke Exposure: Never Smokeless Tobacco: Never Comments No Sex and Gender Information Value Date Recorded Sex Assigned at Not on file Legal Sex Female 10:20 AM CDT Gender Identity Not on file Sexual Orientation Not on file Last Filed Vital Signs Vital Sign Reading [...] 09/18/2024 3:07 PM CDT Plan of Treatment Not on file Procedures Procedure Name Priority Date/Time Associated Diagnosis [...] Not Detected N. gonorrhoeae Not Detected [facility] Comment: Interpretive Data This assay detects Chlamydia trachomatis and Neisseria gonorrhoeae by nucleic acid amplification testing (NAAT). This assay has been cleared by the [place] Food and Drug administration. The performance characteristics of this test have been verified by the [facility] laboratory. The performance characteristics of this test have not been evaluated in individuals less than 14 years of age. Current Interpretive Data was last revised on 2023. Endocervical (None) 09/19/19 3:39 PM CDT 09/18/2024 7:51 PM CDT Alex Fontanez MD LAB MICROBIOLOGY - GENERAL O RDERABLES Final Result [facility] [address] [place] [place] [address] * (ABNORMAL) Vaginitis panel Vaginal (09/18/2024 3:39 PM CDT) Pathologist [facility] Ashley DNA probe Not Detected Not Detected Gardnerella DNA probe Detected(A) Not Detected [facility] Trichomonas DNA probe Not Detected Not Detected [facility] Comment: Interpretive Data Testing performed by [facility] via Affirm VPIII Microbial Identification Test, [...] MICROBIOLOGY - GENERAL O RDERABLES Final Result [facility] [address] [place] [employer] [place] [address] * HIV 1/2 Antibody plus p24 Antigen Blood (09/18/2024 3:37 PM CDT) [facility] HIV 1/2 ab + p24 ag Nonreactive Nonreactive Comment: Nonreactive for HIV-1 antigen and HIV-1/HIV-2 antibodies. No laboratory evidence of HIV infection. If acute HIV infection is suspected, consider testing for HIV-1 RNA. Blood 09/18/2024 3:37 PM CDT 09/18/2024 7:41 PM CDT Result [facility] Alex Fontanez MD LAB MICROBIOLOGY - GENERAL O RDERABLES Final Result Performing Organization Address [facility] Co de Phone Number [facility] [address] [employer] [place], [place] [id number] * Hepatitis C antibody Blood (09/18/2024 3:37 PM CDT) [facility] Hep C Ab Nonreactive Nonreactive Comment: Interpretive [...] 3:37 PM CDT 09/18/2024 7:38 PM CDT Result [facility] Alex Fontanez MD LAB MICROBIOLOGY - GENERAL O RDERABLES Final Result Performing Organization Address [facility] Co de Phone Number [facility] [address] [employer] [place], [place] [id number] * (ABNORMAL) HSV 2 IgG Antibody Blood (09/18/2024 3:37 PM CDT) [facility] HSV 2 IgG Reactive( A) Nonreactive Comment: Interpretive Data 1. Nonreactive: No detectable IgG antibody to HSV-2. 2. Equivocal: Presence or absence of detectable antibodies to HSV-2 cannot be determined and the test should be repeated. 3. Reactive: Indicates presence of detectable IgG antibody to HSV-2. Current interpretive data was last revised on 2022. Testing performed by: [facility], [address] [place] [address]., [id number] Blood 09/18/2024 3:37 PM CDT 09/18/2024 10:00 PM CDT Alex Fontanez MD LAB MICROBIOLOGY - GENERAL O RDERABLES Final Result Performing Organization Address [facility]/ZIP Co de Phone Number [facility] [address] [place] [place] [address] * HSV 1 IgG Antibody Blood (09/18/2024 3:37 PM CDT) HSV 1 IgG Nonreactive Nonreactive Comment: Interpretive Data 1. Nonreactive: No detectable IgG antibody to HSV-1. 2. Equivocal: Presence or absence of detectable antibodies to HSV-1 cannot be determined and the test should be repeated. 3. Reactive: Indicates presence of detectable IgG antibody to HSV-1. Current interpretive data was last revised on 2016. Testing performed by: [facility], [address] [place] [address]., [id number] Blood 09/18/2024 3:37 PM CDT 09/18/2024 10:00 PM CDT Alex Fontanez MD LAB MICROBIOLOGY - GENERAL O RDERABLES Final Result Performing Organization Address [facility]/ZIP Co de Phone Number [facility] [address] [place] [place] [address] * RPR Blood (09/18/2024 3:37 PM CDT) [facility] Nonreactive Nonreactive Comment:Testing performed by : [facility], [address] [place] [address], [place]., [id number] Blood 09/18/2024 3:37 PM CDT 09/18/2024 10:04 PM CDT us Alex Fontanez MD LAB MICROBIOLOGY - GENERAL O RDERABLES Final Result [facility] [address] [place] [place] [address] * Hepatitis B Surface Antigen Blood (09/18/2024 3:37 PM CDT) HepBsAg Nonreactive Nonreactive Blood 09/18/2024 3:37 PM CDT 09/18/2024 7:38 PM CDT us Alex Fontanez MD LAB MICROBIOLOGY - GENERAL O RDERABLES Final Result Performing Organization Address City/[facility] Co de Phone Number [facility] [address] [place] [place] [address] from Last 3 Months Insurance [facility] H[facility]/PPO Address: [facility] [address] [place] [address] Care Teams Solar Process Engineer Relationship Specialty Start Date End Date Unknown, Notinfile PCP - General 09/23/23 Alex Fontanez MD [address] [place] [address] [employer] Obstetrics and Gynecology 09/18/24 "
== END 2024-11-15 13:13 | disposition home or self-care (01) ==
LOC: CHSIMG 13:15
PROVIDERS: PCP Family Medicine; Visit Provider Family Medicine
DX: Z12.31 Encounter for screening mammogram for malignant neoplasm of breast (principal)
CPT/HCPCS: 77063; 77067

== ENCOUNTER 2024-11-21 13:19 | Outpatient (CLI) | payer OTHER, SELFPAY ==
--- NOTE | ~2024-11-21 | CT_ITS ---
CT Scan of the Chest without Contrast: Clinical Indication: Lung cancer screening, nicotine dependence Technique: Contiguous sections were acquired throughout the chest without intravenous contrast. Dose reduction technique was used on this scan by utilizing automated exposure control and iterative recon struction technique. The dose-length product (DLP) was 77.02 mGy-cm. Findings: There is no evidence of any significant mediastinal, hilar or axillary lymphadenopathy. The mediastin al soft tissues appear normal. There is no evidence of pleural or pericardial effusion. The lungs are clear. No pulmonary nodules or infiltrates are noted. Images through the upper abdomen reveal no abnormalities. Impression: Lung RADS 1: Negative. 12 month follow-up screening CT advised. Reviewed, dictated and finalized at location . Impression: Lung RADS 1: Negative. 12 month follow-up screening CT advised.
== END 2024-11-21 13:20 | disposition home or self-care (01) ==
LOC: GOSHIMG 13:19
PROVIDERS: PCP Family Medicine; Visit Provider Family Medicine
DX: Z12.2 Encounter for screening for malignant neoplasm of respiratory organs (principal); F17.210 Nicotine dependence, cigarettes, uncomplicated; Z12.31 Encounter for screening mammogram for malignant neoplasm of breast
CPT/HCPCS: 71271